=== PATIENT | female | born 1940 | race Caucasian/White ===

== ENCOUNTER 2016-10-11 01:42 | Emergency (ER) | payer MEDICARE, OTHER ==
[~2016-10-11 01:42] MED LIST: ACETAMINOPHEN325 MG PO; CARDURA4 MG PO; CELEXA20 MG PO; ELIQUIS5 MG PO; FERROUS SULFAT325 MG PO; GLUCOTROL10 MG PO; HYDROCHLOROTHIA25 MG PO; HYDROCODON-ACE1 EAC6 PO; KEPPRA500 MG PO; LANTUS100 UNIT/1 SQ; LASIX40 MG PO; LIPITOR80 MG PO; METOPROLOL TART50 MG PO; MINOXIDIL2.5 MG PO; NEXIUM40 MG PO; NORVASC5 MG PO; PLAVIX75 MG PO; POTASSIUM CHLO10 MEQ PO; SYNTHROID150 MCG PO; VASOTEC20 MG PO
[2016-10-18] MEDS ORDERED: NOVOLOG1 UNIT/0.0 SQ (11:29)
[2016-10-18] MEDS ORDERED: LANTUS100 UNIT/1 SQ (11:30)
[2016-10-18] MEDS ORDERED: NORVASC5 MG PO (11:30)
[2016-10-18] MEDS ORDERED: CARDURA4 MG PO (11:30)
[2016-10-18] MEDS ORDERED: PLAVIX75 MG PO (11:30)
[2016-10-18] MEDS ORDERED: KEPPRA500 MG PO (11:31)
[2016-10-18] MEDS ORDERED: LIPITOR80 MG PO (11:32)
[2016-10-18] MEDS ORDERED: CELEXA20 MG PO (11:32)
[2016-10-18] MEDS ORDERED: KLOR-CON-1010 MEQ PO (11:32)
[2016-10-18] MEDS ORDERED: FERROUS SULFAT325 MG PO (11:32)
[2016-10-18] MEDS ORDERED: NEXIUM40 MG PO (11:33)
[2016-10-18] MEDS ORDERED: NORCO 10-325 T1 EACH PO (11:33)
[2016-10-18] MEDS ORDERED: CLARITIN10 MG PO (11:33)
[2016-10-18] MEDS ORDERED: SYNTHROID150 MCG PO (11:33)
[2016-10-18] MEDS ORDERED: HYDRALAZINE HCL25 MG PO (11:34)
[2016-10-18] MEDS ORDERED: ELIQUIS2.5 MG PO (11:34)
[2016-10-18] MEDS ORDERED: TOPROL XL25 MG PO (11:34)
[2016-10-18] MEDS ORDERED: LASIX20 MG PO (11:34)
[2016-10-18] MEDS ORDERED: GLUCOTROL10 MG PO (11:35)
[2016-10-18] MEDS ORDERED: BREO ELLIPTA 11 EACH IH (11:35)
== END 2016-10-11 03:51 | disposition critical access hospital (66) ==
LOC: ER 01:42
DX: I11.0 Hypertensive heart disease with heart failure (principal); I50.9 Heart failure, unspecified; I48.91 Unspecified atrial fibrillation; J80 Acute respiratory distress syndrome; M54.9 Dorsalgia, unspecified; E11.9 Type 2 diabetes mellitus without complications; E78.5 Hyperlipidemia, unspecified; Z86.73 Personal history of transient ischemic attack (TIA), and cerebral infarction without residual deficits; Z90.710 Acquired absence of both cervix and uterus; Z79.02 Long term (current) use of antithrombotics/antiplatelets; Z79.4 Long term (current) use of insulin
CPT/HCPCS: 96374

== ENCOUNTER 2016-10-11 01:42 | Observation (INO) | payer MEDICARE, OTHER ==
[2016-10-18] MEDS ORDERED: NOVOLOG1 UNIT/0.0 SQ (11:29)
[2016-10-18] MEDS ORDERED: CARDURA4 MG PO (11:30)
[2016-10-18] MEDS ORDERED: LANTUS100 UNIT/1 SQ (11:30)
[2016-10-18] MEDS ORDERED: PLAVIX75 MG PO (11:30)
[2016-10-18] MEDS ORDERED: NORVASC5 MG PO (11:30)
[2016-10-18] MEDS ORDERED: KEPPRA500 MG PO (11:31)
[2016-10-18] MEDS ORDERED: CELEXA20 MG PO (11:32)
[2016-10-18] MEDS ORDERED: LIPITOR80 MG PO (11:32)
[2016-10-18] MEDS ORDERED: KLOR-CON-1010 MEQ PO (11:32)
[2016-10-18] MEDS ORDERED: FERROUS SULFAT325 MG PO (11:32)
[2016-10-18] MEDS ORDERED: NEXIUM40 MG PO (11:33)
[2016-10-18] MEDS ORDERED: CLARITIN10 MG PO (11:33)
[2016-10-18] MEDS ORDERED: NORCO 10-325 T1 EACH PO (11:33)
[2016-10-18] MEDS ORDERED: SYNTHROID150 MCG PO (11:33)
[2016-10-18] MEDS ORDERED: ELIQUIS2.5 MG PO (11:34)
[2016-10-18] MEDS ORDERED: HYDRALAZINE HCL25 MG PO (11:34)
[2016-10-18] MEDS ORDERED: TOPROL XL25 MG PO (11:34)
[2016-10-18] MEDS ORDERED: LASIX20 MG PO (11:34)
[2016-10-18] MEDS ORDERED: BREO ELLIPTA 11 EACH IH (11:35)
[2016-10-18] MEDS ORDERED: GLUCOTROL10 MG PO (11:35)
== END 2016-10-13 15:00 | disposition home or self-care (01) ==
LOC: ER 01:42 → MED 03:52
PROVIDERS: ADMIT Internal Medicine
DX: I16.0 Hypertensive urgency (principal); I13.0 Hypertensive heart and chronic kidney disease with heart failure and stage 1 through stage 4 chronic kidney disease, or unspecified chronic kidney disease; I50.33 Acute on chronic diastolic (congestive) heart failure; E11.22 Type 2 diabetes mellitus with diabetic chronic kidney disease; I25.10 Atherosclerotic heart disease of native coronary artery without angina pectoris; E03.9 Hypothyroidism, unspecified; G40.909 Epilepsy, unspecified, not intractable, without status epilepticus; N18.3 Chronic kidney disease, stage 3 (moderate); I48.91 Unspecified atrial fibrillation; Z79.891 Long term (current) use of opiate analgesic; Z79.01 Long term (current) use of anticoagulants; Z79.4 Long term (current) use of insulin; Z79.899 Other long term (current) drug therapy; Z86.73 Personal history of transient ischemic attack (TIA), and cerebral infarction without residual deficits
CPT/HCPCS: 36415; 96374; 96376; G0378; J1940